=== PATIENT | male | born 1995 | race Caucasian/White ===

== ENCOUNTER 2017-07-08 12:31 | Emergency (ER) | payer OTHER ==
[2017-07-08 12:35] VITALS: RESP 16; TEMP 98.1; O2SAT 98
--- NOTE | 2017-07-08 12:58 | EDPHY ---
H & P Stated Complaint: RUQ pain x several days; constipated by hx;no vom,+nausea Time Seen by Provider: 07/08/17 12:58 HPI/ROS: CHIEF COMPLAINT: Right lower quadrant pain HISTORY OF PRESENT ILLNESS: The patient presents to the ED complaining of 3 days of worsening abdominal pain. The location is in the right lower quadrant. He denies associated fever, vomiting or diarrhea. He does report associated anorexia. He has no prior history of the symptoms. The patient denies past surgical history. The patient denies any additional acute complaints. The patient takes no regular medications. REVIEW OF SYSTEMS: A comprehensive 10 point review of systems is otherwise negative aside from elements mentioned in the history of present illness. Source: Patient Exam Limitations: No limitations - Personal History Current Tetanus Diphtheria and Acellular Pertussis (TDAP): Yes - Medical/Surgical History Other PMH: neg per pt - Social History Smoking Status: Never smoked - Physical Exam Exam: General Appearance: Alert, no distress Eyes: Pupils equal and round no pallor or injection ENT, Mouth: Mucous membranes moist Respiratory: There are no retractions, lungs are clear to auscultation Cardiovascular: Regular rate and rhythm Gastrointestinal: Mild tenderness to palpation right lower quadrant, no guarding or peritoneal signs Neurological: 5/5 strength noted all 4 extremities Skin: Warm and dry, no rashes Musculoskeletal: Neck is supple nontender Extremities: symmetrical, full range of motion Constitutional: Initial Vital Signs Temperature (C) 36.7 C 07/08/17 12:33 Heart Rate 62 07/08/17 12:33 Respiratory Rate 16 07/08/17 12:33 Blood Pressure 153/77 H 07/08/17 12:33 O2 Sat (%) 98 07/08/17 12:33 Allergies/Adverse Reactions: No Known Allergies Allergy (Unverified 07/08/17 12:35) Home Medications: Medication Instructions Recorded NK [No Known Home Meds] 07/08/17 Medical Decision Making - Diagnostics Imaging Results: Imaging Impressions Abdomen Ultrasound 07/08/17 13:06 Impression: The proximal portion of the appendix appears normal, however the mid -to-distal aspect is not adequately evaluated. If there is further clinical concern regarding the patient's right lower quadrant pain, contrast-enhanced CT imaging could be considered. Findings were discussed with Juan Antonio Calixto MD at 14:05, on 07/08/2017. ED Course/Re-evaluation: The patient presents to the emergency department with 3 days of a abdominal pain. The patient was noted to have only minimal tenderness the right lower quadrant on exam. The patient has no fever leukocytosis. The patient was taken for an abdominal ultrasound which demonstrates partial visualization of the appendix without obvious dilatation or inflammatory changes. The patient did received 30 mg of Toradol. I re-evaluated the patient several times. At 2:30 p.m. He is currently feeling better. My clinical suspicion for appendicitis is quite low. I discussed with the patient and his mother the risks and benefits of CT scanning. At this point time they would like to observe his symptoms over the next 12 hr. They do understand that we have not fully exclude acute appendicitis. There may be some element of constipation. The patient will take a [id number] laxative. Differential Diagnosis: Differential diagnosis considered includes appendicitis, perforation, obstruction, mesenteric adenitis, constipation - Data Points Laboratory Results: Laboratory Results 07/08/17 13:25 07/08/17 13:25 07/08/17 07/08/17 13:25 13:25 WBC 5.90 10^3/uL 10^3/uL (3.80-9.50) RBC 5.15 10^6/uL 10^6/uL (4.40-6.38) Hgb 16.6 g/dL g/dL (13.7-17.5) Hct 46.5 % % (40.0-51.0) MCV 90.3 fL fL (81.5-99.8) MCH 32.2 pg pg (27.9-34.1) MCHC 35.7 g/dL g/dL (32.4-36.7) RDW 12.3 % % (11.5-15.2) Plt Count 259 10^3/uL 10^3/uL (150-400) MPV 8.9 fL fL (8.7-11.7) Neut % (Auto) 67.8 % % (39.3-74.2) Lymph % (Auto) 16.6 % % (15.0-45.0) [place] % (Auto) 14.2 % H % (4.5-13.0) Eos % (Auto) 0.8 % % (0.6-7.6) Baso % (Auto) 0.3 % % (0.3-1.7) Nucleat RBC Rel Count 0.0 % % (0.0-0.2) Absolute Neuts (auto) 3.99 10^3/uL 10^3/uL (1.70-6.50) Absolute Lymphs (auto) 0.98 10^3/uL L 10^3/uL (1.00-3.00) Absolute Monos (auto) 0.84 10^3/uL H 10^3/uL (0.30-0.80) Absolute Eos (auto) 0.05 10^3/uL 10^3/uL (0.03-0.40) Absolute Basos (auto) 0.02 10^3/uL 10^3/uL (0.02-0.10) Absolute Nucleated RBC 0.00 10^3/uL 10^3/uL (0-0.01) Immature Gran % 0.3 % % (0.0-1.1) Immature Gran # 0.02 10^3/uL 10^3/uL (0.00-0.10) Sodium 142 mEq/L mEq/L (135-145) Potassium 4.3 mEq/L mEq/L (3.5-5.2) Chloride 105 mEq/L mEq/L (97-110) Carbon Dioxide 24 mEq/l mEq/l (22-31) Anion Gap 13 mEq/L mEq/L (8-16) BUN 11 mg/dL mg/dL (7-23) Creatinine 1.1 mg/dL mg/dL (0.7-1.3) Estimated GFR > 60 Glucose 78 mg/dL mg/dL (70-100) Calcium 9.8 mg/dL mg/dL (8.5-10.4) Medications Given: Discontinued Medications Sodium Chloride (Ns) 1,000 mls @ 0 mls/hr IV EDNOW ONE; Wide Open PRN Reason: Protocol Stop: 07/08/17 13:07 Last Admin: 07/08/17 13:47 Dose: 1,000 mls Ketorolac Tromethamine (Toradol) 30 mg IVP EDNOW ONE Stop: 07/08/17 14:20 Last Admin: 07/08/17 14:31 Dose: 30 mg Departure - Departure Disposition: Home, Routine, Self-Care Clinical Impression: Abdominal pain Condition: Good Instructions: Acute Abdominal Pain (ED) Additional Instructions: 1. Sometimes we are unable to diagnose an obvious cause of abdominal pain in the Emergency Department. Based upon our evaluation today, we see no obvious explanation for your pain. Because more serious conditions can be difficult to diagnose early in the course of their presentation, we ask that you return to the Emergency Department in 8-12 hours for a recheck if you are still having pain. This is necessary to exclude the development of a more serious condition such as appendicitis or other intra-abdominal emergency. In the event your pain markedly increases before that time or you develop intractable vomiting or fever return to the Emergency Department immediately. 2. Please try taking milk of magnesia as directed for possible constipation as that may be a sore severe pain today.
[2017-07-08] MEDS ORDERED: NS 1,000 ML IV ONE (13:06)
[2017-07-08 13:44] LABS: PLATELET COUNT 259 10^3/uL (150-400)
[2017-07-08] MEDS ORDERED: KETOROLAC 30 MG/1 ML SDV IVP ONE (14:19)
[2017-07-08 14:44] VITALS: BP 126/70; PULSE 76
== END 2017-07-08 14:49 | disposition home or self-care (01) ==
DX: R10.31 Right lower quadrant pain (principal); E86.9 Volume depletion, unspecified
CPT/HCPCS: 96374; J1885